=== PATIENT | female | born 1975 | race Caucasian/White ===

== ENCOUNTER 2018-08-11 23:14 | Observation (INO) | payer OTHER ==
[2018-08-11] MEDS ORDERED: ALBUTEROL SO4 2.5/IPRATROPIUM 0.5 INH SOL 3 ML VIAL.NEB. NEB ONE ×2 (23:22→23:31)
--- NOTE | 2018-08-12 00:03 | PDOC ---
History of Present Illness - General History Source: Patient, Family Exam Limitations: No Limitations - History of Present Illness Initial Comments: 08/12/18 01:14 The patient is a 43 year old female brought via EMS and presenting with her family, with a significant past medical history of Addisons disease and asthma ( multiple past intubations), who presents to the ED complaining of shortness of breath, headache and a panic attack onset today. She reports that her and her family are going through a change in living arrangements and are currently staying at a hotel. The patient notes that she has a service dog due to her addisons disease that the hotel initially accepted but then denied after a couple day stay. This interaction, prompted the patient to have a panic attack and come to the ED. The patient was given two neb treatments prior to presentation. The patient denies chest pain, and dizziness. Denies fever, chills, nausea, vomiting, diarrhea or constipation. Denies dysuria, frequency, urgency and hematuria. Allergies: None Past surgical history: None reported Social History: No alcohol, tobacco or drug use reported <Robert Souza - Last Filed: 08/12/18 01:37> <Tiff Thornton - Last Filed: 08/12/18 23:30> - General Chief Complaint: Shortness of Breath Stated Complaint: PANIC ATTACK Time Seen by Provider: 08/12/18 00:01 Past History <Robert Souza - Last Filed: 08/12/18 01:37> - Suicide/Smoking/Psychosocial Hx Smoking History: Never smoked Have you smoked in the past 12 months: No Information on smoking cessation initiated: No Hx Alcohol Use: No Drug/Substance Use Hx: No <Tiff Thornton - Last Filed: 08/12/18 23:30> - Past Medical History Allergies/Adverse Reactions: Allergies Allergy/AdvReac Type Severity Reaction Status Date / Time No Known Allergies Allergy Verified 08/11/18 23:30 Home Medications: Ambulatory Orders NK [No Known Home Medication] 08/12/18 Review of Systems - Review of Systems Able to Perform ROS?: Yes Comments:: 08/12/18 01:14 GENERAL/CONSTITUTIONAL: (+) Shaking. No fever or chills. No weakness. HEAD, EYES, EARS, NOSE AND THROAT: No change in vision. No ear pain or discharge. No sore throat. GASTROINTESTINAL: No nausea, vomiting, diarrhea or constipation. GENITOURINARY: No dysuria, frequency, or change in urination. CARDIOVASCULAR: (+) Shortness of breath. No chest pain. RESPIRATORY: No cough, wheezing, or hemoptysis. MUSCULOSKELETAL: No joint or muscle swelling or pain. No neck or back pain. SKIN: No rash NEUROLOGIC: (+) Headache. No vertigo, loss of consciousness, or change in strength/sensation. ENDOCRINE: No increased thirst. No abnormal weight change. HEMATOLOGIC/LYMPHATIC: No anemia, easy bleeding, or history of blood clots. ALLERGIC/IMMUNOLOGIC: No hives or skin allergy. <Robert Souza - Last Filed: 08/12/18 01:37> *Physical Exam - Vital Signs Last Vital Signs Temp Pulse Resp BP Pulse Ox 96.6 F L 144 H 26 H 154/98 95 08/11/18 23:28 08/11/18 23:28 08/11/18 23:28 08/11/18 23:28 08/11/18 23:28 - Physical Exam Comments: 08/12/18 01:13 Constitutional: Awake, alert, oriented. (+) Anxious, Panicky and tearful. Head: Normocephalic. Atraumatic Eyes: PERRL. EOMI. Conjunctivae are not pale. ENT: Mucous membranes are moist and intact. Posterior pharynx without exudates or erythema. Uvula midline. Neck: Supple. Full ROM. No lymphadenopathy. Cardiovascular: (+) Tachycardia. Regular rhythm. S1, S2 regular. Distal pulses are 2+ and symmetric. Pulmonary/Chest: No evidence of respiratory distress. Clear to auscultation bilaterally No wheezing, rales or rhonchi. Abdominal: Soft and non-distended. There is no tenderness. No rebound, guarding or rigidity. No organomegaly. No palpable masses. Good bowel sounds. Back: No CVA tenderness. Musculoskeletal: No edema. No cyanosis. No clubbing. Full range of motion in all extremities. Nocalf tenderness. Radial/pedal pulses are intact and 2+ bilaterally Skin: Skin is warm and dry. No petechiae. No purpura. Neurological: Alert and oriented to person, place, and time. Cranial nerves II -XII are grossly intact. Normal speech. Strength is grossly symmetric. No sensory deficits. <Robert Souza - Last Filed: 08/12/18 01:37> - Vital Signs Last Vital Signs Temp Pulse Resp BP Pulse Ox 96.6 F L 144 H 26 H 154/98 95 08/11/18 23:28 08/11/18 23:28 08/11/18 23:28 08/11/18 23:28 08/11/18 23:28 <Tiff Thornton - Last Filed: 08/12/18 23:30> Heart Score/ECG Review - ECG Intrepretation Comment:: 08/12/18 01:46 sinus tach at 120, nl axis, nl interval, no acute st/t wave findings <Tiff Thornton - Last Filed: 08/12/18 23:30> ED Treatment Course - LABORATORY CBC & Chemistry Diagram: 08/12/18 00:50 08/12/18 00:50 - ADDITIONAL ORDERS Additional order review: Laboratory Results 08/12/18 00:50 VBG pH 7.37 POC VBG pCO2 40.3 POC VBG pO2 38.4 Mixed VBG HCO3 22.7 08/12/18 00:50 RBC 4.96 MCV 82.8 MCHC 33.1 RDW 14.4 MPV 7.2 L Neutrophils % 80.3 Lymphocytes % 13.2 Monocytes % 5.1 Eosinophils % 0.7 Basophils % 0.7 - Medications Given in the ED: ED Medications Discontinued Medications Generic Name Dose Route Start Last Admin Trade Name Haq PRN Reason Stop Dose Admin Albuterol/Ipratropium 1 amp 08/11/18 23:31 08/11/18 23:31 Duoneb - NEB 08/11/18 23:32 1 amp NOW ONE Administration Albuterol/Ipratropium 1 amp 08/12/18 00:32 08/12/18 01:05 Duoneb - NEB 08/12/18 00:33 1 amp ONCE ONE Administration Sodium Chloride 1,000 ml 08/12/18 00:32 08/12/18 01:05 Normal Saline - IV 08/12/18 00:33 1,000 ml ONCE ONE Administration <Robert Souza - Last Filed: 08/12/18 01:37> - LABORATORY CBC & Chemistry Diagram: 08/12/18 08:35 08/12/18 08:35 - Medications Given in the ED: ED Medications Discontinued Medications Generic Name Dose Route Start Last Admin Trade Name Melchor PRN Reason Stop Dose Admin Albuterol/Ipratropium 1 amp 08/11/18 23:31 08/11/18 23:31 Duoneb - NEB 08/11/18 23:32 1 amp NOW ONE Administration <Tiff Thornton - Last Filed: 08/12/18 23:30> Medical Decision Making - Medical Decision Making 08/12/18 01:41 a/p: 43yo female with hx of asthma and hx of gertrude's disease presents for eval of sob/anxiety/addisonian crisis -pt very anxious upon arrival after alledged verbal altercation with the hotel worker -pt tachy, tearful, tachpnic -pt states she has been off her meds x 9 months -no recent flare ups -last asthma was 2017 -pt follows with her PMD at [facility] -does not follow with an compensator -will send labs, ekg, cxr, head ct -will give nebs -will monitor and reassess 08/12/18 01:46 re-eval: pt feeling much hr improved to 120 from 144 lungs cta no longer with panicking or anxiety -with rosenthal -will medicate, head ct pending will continue to monitor and reassess 08/12/18 23:29 pt was signed out to the oncoming ED physician pending labs and head ct <Tiff Thornton - Last Filed: 08/12/18 23:30> *DC/Admit/Observation/Transfer - Attestations Scribe Attestion: 08/12/18 01:13 Documentation prepared by Robert Souza, acting as medical sales associate for Tiff Thornton DO <Robert Souza - Last Filed: 08/12/18 01:37> - Discharge Dispostion Decision to Admit order: No - Attestations Physician Attestion: 08/12/18 01:48 I, Dr. Tiff Thornton, DO, attest that this document has been prepared under my direction and personally reviewed by me in its entirety. I further attest, that it accurately reflects all work, treatment, procedures and medical decision -making performed by me. <Tiff Thornton - Last Filed: 08/12/18 23:30> Diagnosis at time of Disposition: Acute stress reaction, Asthma attack, Weakness - Discharge Dispostion Disposition: HOME Condition at time of disposition: Improved
[2018-08-12] MEDS ORDERED: SODIUM CHLORIDE 0.9% 1000 ML INFUS.BAG IV ONE (00:32)
[2018-08-12] MEDS ORDERED: ALBUTEROL SO4 2.5/IPRATROPIUM 0.5 INH SOL 3 ML VIAL.NEB. NEB ONE ×2 (00:32→01:01)
[2018-08-12 01:06] LABS: VENOUS PC02 40.3 mmHg (38-52); VENOUS PH 7.37 (7.32-7.42); VENOUS PO2 38.4 mmHg (28-48)
[2018-08-12 01:07] LABS: BASO % 0.7 % (0-2.0); EOS % 0.7 % (0-4.5); HEMOGLOBIN 13.6 GM/dL (10.7-15.3); LYMPH % 13.2 % (8-40); MCH 27.4 pg (25.7-33.7); MCHC 33.1 g/dl (32.0-36.0); MEAN CELL VOLUME 82.8 fl (80-96); MEAN PLT VOLUME 7.2 fl (7.5-11.1); MONO % 5.1 % (3.8-10.2); NEUT % 80.3 % (42.8-82.8); PLATELET COUNT 322 K/MM3 (134-434); RBC 4.96 M/mm3 (3.60-5.2); RDW 14.4 % (11.6-15.6); WHITE BLOOD COUNT 12.6 K/mm3 (4.0-10.0)
[2018-08-12 01:20] LABS: INR 1.04 (0.83-1.09); PROTHROMBIN TIME (PATIENT) 12.3 SEC (9.7-13.0)
[2018-08-12 01:23] LABS: ACTIVATED PTT 24.5 SECONDS (25.2-36.5)
[2018-08-12 01:34] LABS: ALBUMIN 3.9 g/dl (3.4-5.0); ALK PHOS 96 U/L (45-117); ANION GAP 9 MMOL/L (8-16); BILIRUBIN,TOTAL 0.5 mg/dL (0.2-1); BLOOD UREA NITROGEN 13 mg/dL (7-18); CALCIUM 8.9 mg/dL (8.5-10.1); CHLORIDE 107 mmol/L (98-107); CO2 23 mmol/L (21-32); GLUCOSE,RANDOM 157 mg/dL (74-106); MAGNESIUM 1.9 mg/dL (1.8-2.4); POTASSIUM 3.5 mmol/L (3.5-5.1); SGOT/AST 20 U/L (15-37); SGPT/ALT 33 U/L (13-61); SODIUM 139 mmol/L (136-145); TOT PROT 7.3 g/dl (6.4-8.2)
[2018-08-12] MEDS ORDERED: METOCLOPRAMIDE HCL INJECTION 10 MG/2 ML VIAL IVPUSH ONE (01:40)
[2018-08-12] MEDS ORDERED: ACETAMINOPHEN 1000 MG/100 ML VIAL (NON FORMULARY) IVPB ONE (01:40)
[2018-08-12] MEDS ORDERED: ACETAMINOPHEN INJECTION 100 ML IVPB ONE (01:43)
[2018-08-12] MEDS ORDERED: METOCLOPRAMIDE HCL INJECTION 10 MG/2 ML VIAL ONE (01:43)
[2018-08-12] MEDS ORDERED: methylPREDNISolone NA SUCC 125 MG/2 ML VIAL IVPB ONE (01:48)
[2018-08-12] MEDS ORDERED: methylPREDNISolone NA SUCC 125 MG/2 ML VIAL ONE (01:50)
--- NOTE | 2018-08-12 04:19 | PDOC ---
*Physical Exam - Vital Signs Last Vital Signs Temp Pulse Resp BP Pulse Ox 96.6 F L 144 H 26 H 154/98 95 08/11/18 23:28 08/11/18 23:28 08/11/18 23:28 08/11/18 23:28 08/11/18 23:28 - Physical Exam Comments: 08/12/18 04:16 Care received at 2 AM Briefly, 43-year-old patient with a history of Pembina's disease and asthma BIBEMS to the emergency Department with acute onset shortness of breath and panic attack after a verbal altercation. Per EMS, wheezing en route. Patient received multiple duonebs, steroids. Labs were checked and within normal limits. UPT neg. Patient complaining of a headache and was pending CT head. CTH negative for acute path ON re-evaluation, pt continues to feel SOB, and diffusely weak stating she feels like an gertrude's crisis is coming on Pt has been off meds for months Attempted to walk pt, could not stand, stated her legs are giving out At this pt, will admit for SOB, weakness Hospitalist has been microblogged 08/12/18 05:[address] Jacobson, pt accepted for admission to med/surg obs Case discussed in detail with admitting physician including history, physical exam and ancillary studies. Admitting physician has assumed care for the patient, will follow all pending diagnostics and will complete the evaluation and treatment. ED Treatment Course - LABORATORY CBC & Chemistry Diagram: 08/12/18 00:50 08/12/18 00:50 - ADDITIONAL ORDERS Additional order review: Laboratory Results 08/12/18 08/12/18 08/12/18 00:50 00:50 00:50 PT with INR INR PTT (Actin FS) VBG pH 7.37 POC VBG pCO2 40.3 POC VBG pO2 38.4 Mixed VBG HCO3 22.7 Sodium 139 Potassium 3.5 Chloride 107 Carbon Dioxide 23 Anion Gap 9 BUN 13 Creatinine 1.0 Creat Clearance w eGFR > 60 Random Glucose 157 H Calcium 8.9 Magnesium 1.9 Total Bilirubin 0.5 AST 20 ALT 33 Alkaline Phosphatase 96 Creatine Kinase 113 Troponin I < 0.02 Total Protein 7.3 Albumin 3.9 Serum , Qual Negative 08/12/18 00:50 PT with INR 12.30 INR 1.04 PTT (Actin FS) 24.5 L VBG pH POC VBG pCO2 POC VBG pO2 Mixed VBG HCO3 Sodium Potassium Chloride Carbon Dioxide Anion Gap BUN Creatinine Creat Clearance w eGFR Random Glucose Calcium Magnesium Total Bilirubin AST ALT Alkaline Phosphatase Creatine Kinase Troponin I Total Protein Albumin Serum , Qual 08/12/18 00:50 RBC 4.96 MCV 82.8 MCHC 33.1 RDW 14.4 MPV 7.2 L Neutrophils % 80.3 Lymphocytes % 13.2 Monocytes % 5.1 Eosinophils % 0.7 Basophils % 0.7 - Medications Given in the ED: ED Medications Discontinued Medications Generic Name Dose Route Start Last Admin Trade Name Freq PRN Reason Stop Dose Admin Acetaminophen 1,000 mg 08/12/18 01:40 08/12/18 03:25 Ofirmev Injection - IVPB 08/12/18 01:41 1,000 mg ONCE ONE Administration Albuterol/Ipratropium 1 amp 08/11/18 23:31 08/11/18 23:31 Duoneb - NEB 08/11/18 23:32 1 amp NOW ONE Administration Albuterol/Ipratropium 1 amp 08/12/18 00:32 08/12/18 01:05 Duoneb - NEB 08/12/18 00:33 1 amp ONCE ONE Administration Diphenhydramine HCl 12.5 mg 08/12/18 01:40 08/12/18 02:49 Benadryl Injection - IVPUSH 08/12/18 01:41 12.5 mg ONCE ONE Administration Methylprednisolone Sodium Succinate 125 mg 08/12/18 01:48 08/12/18 02:50 Solu-Medrol - IVPB 08/12/18 01:49 125 mg ONCE ONE Administration Metoclopramide HCl 10 mg 08/12/18 01:40 08/12/18 02:50 Reglan Injection - IVPUSH 08/12/18 01:41 10 mg ONCE ONE Administration Sodium Chloride 1,000 ml 08/12/18 00:32 08/12/18 01:05 Normal Saline - IV 08/12/18 00:33 1,000 ml ONCE ONE Administration *DC/Admit/Observation/Transfer Diagnosis at time of Disposition: Acute stress reaction, Asthma attack, Weakness - Discharge Dispostion Condition at time of disposition: Guarded Decision to Admit order: Yes - Referrals Referrals: Milana Dodd [Primary Care Provider] - - Patient Instructions - Post Discharge Activity - Attestations Physician Attestion: 08/12/18 05:14 I, Dr. María Golden MD, attest that this document has been prepared under my direction and personally reviewed by me in its entirety. I further attest, that it accurately reflects all work, treatment, procedures and medical decision -making performed by me.
--- NOTE | 2018-08-12 06:34 | HP ---
CHIEF COMPLAINT: SOB, chest pain PCP: Dr Milana Dodd HISTORY OF PRESENT ILLNESS: Pt is a 43 y/o lady with a significant past medical history of severe asthma ( intubated 9 times), Deschutes's disease, panic attacks, SARAH, migraines, brain aneurysm(vein), Factor V of Leiden mutation (not on anticoagulation, has vena cava filter), PUD, and nephrolithiasis presented to [facility] yesterday evening () c/o shortness of breath and chest pain. Pt states she is under recent stress due to her having to move out of her apartment in [place], [place] due to a mold infestation. Pt was in the lobby of her hotel yesterday evening around 9 PM when she entered into a verbal argument with the staff at the hotel regarding her dog. Pt became flustered and began to experience palpatations, numbness, shaking, palpitations, and weakness in her legs. EMS was called and pt was brought to [facility]. 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 States she is not following an [employer]. ER course was notable for: (1) CT Head negative (2) Troponin <0.02 (3)EKG --> Sinus tach at 120, nl axis, nl interval, no acute st/t wave findings Recent Travel: Denies PAST MEDICAL HISTORY: PAST SURGICAL HISTORY: Vena Cava Filter, ERCP, Cholecystectomy, 2 C-Sections, unspecified back surgery. Social History: Smoking: Denies Alcohol: Denies Drugs: Denies Family History: Allergies No Known Allergies Allergy (Verified 08/11/18 23:30) HOME MEDICATIONS: REVIEW OF SYSTEMS CONSTITUTIONAL: Absent: fever, chills, diaphoresis, generalized weakness, malaise, loss of appetite, weight change HEENT: Absent: rhinorrhea, nasal congestion, throat pain, throat swelling, difficulty swallowing, mouth swelling, ear pain, eye pain, visual changes CARDIOVASCULAR: PRESENT: chest pain, palpitations, irregular heart rate, lightheadedness, peripheral edema RESPIRATORY: PRESENT: shortness of breath, wheezing GASTROINTESTINAL: Absent: abdominal pain, abdominal distension, nausea, vomiting, diarrhea, constipation, melena, hematochezia GENITOURINARY: Absent: dysuria, frequency, urgency, hesitancy, hematuria, flank pain, genital pain MUSCULOSKELETAL: Absent: myalgia, arthralgia, joint swelling, back pain, neck pain SKIN: Absent: rash, itching, pallor HEMATOLOGIC/IMMUNOLOGIC: Absent: easy bleeding, easy bruising, lymphadenopathy, frequent infections ENDOCRINE: PRESENT: RAYMUNDO'S DISEASE NEUROLOGIC: Absent: headache, focal weakness or paresthesias, dizziness, unsteady gait, seizure, mental status changes, bladder or bowel incontinence PSYCHIATRIC: PRESENT: anxiety, depression PHYSICAL EXAMINATION Vital Signs - 24 hr 08/11/18 23:28 Temperature 96.6 F L Pulse Rate 144 H Respiratory 26 H Rate Blood Pressure 154/98 O2 Sat by Pulse 95 Oximetry (%) GENERAL: AAOx3, Anxious HEAD: NC/AT. EYES: PERRLA EARS, NOSE, THROAT: MMM NECK: Supple No JVD LUNGS: CTA B/L HEART: Tachycardia, Regular rythm ABDOMEN: Morbidly obese, abdominal striae MUSCULOSKELETAL: Full ROM throughout UPPER EXTREMITIES: No CCE LOWER EXTREMITIES: No CCE NEUROLOGICAL: No neuro deficits appreciated PSYCHIATRIC: Anxious, emotionally labile SKIN:No Rashes or lesions appreciated Laboratory Results - last 24 hr 08/12/18 08/12/18 08/12/18 00:50 00:50 00:50 WBC RBC Hgb Hct MCV MCH MCHC RDW Plt Count MPV Absolute Neuts (auto) Neutrophils % Lymphocytes % Monocytes % Eosinophils % Basophils % Nucleated RBC % PT with INR 12.30 INR 1.04 PTT (Actin FS) 24.5 L VBG pH 7.37 POC VBG pCO2 40.3 POC VBG pO2 38.4 Mixed VBG HCO3 22.7 Sodium Potassium Chloride Carbon Dioxide Anion Gap BUN Creatinine Creat Clearance w eGFR Random Glucose Calcium Magnesium Total Bilirubin AST ALT Alkaline Phosphatase Creatine Kinase Troponin I Total Protein Albumin Serum , Qual Negative 08/12/18 08/12/18 00:50 00:50 WBC 12.6 H RBC 4.96 Hgb 13.6 Hct 41.0 MCV 82.8 MCH 27.4 MCHC 33.1 RDW 14.4 Plt Count 322 MPV 7.2 L Absolute Neuts (auto) 10.1 H Neutrophils % 80.3 Lymphocytes % 13.2 Monocytes % 5.1 Eosinophils % 0.7 Basophils % 0.7 Nucleated RBC % 0 PT with INR INR PTT (Actin FS) VBG pH POC VBG pCO2 POC VBG pO2 Mixed VBG HCO3 Sodium 139 Potassium 3.5 Chloride 107 Carbon Dioxide 23 Anion Gap 9 BUN 13 Creatinine 1.0 Creat Clearance w eGFR > 60 Random Glucose 157 H Calcium 8.9 Magnesium 1.9 Total Bilirubin 0.5 AST 20 ALT 33 Alkaline Phosphatase 96 Creatine Kinase 113 Troponin I < 0.02 Total Protein 7.3 Albumin 3.9 Serum , Qual ASSESSMENT/PLAN: Pt is a 43 y/o lady with a significant past medical history of severe asthma ( intubated 9 times), Deschutes's disease, panic attacks, SARAH, migraines, brain aneurysm(vein), Factor V of Leiden mutation (not on anticoagulation, has vena cava filter), PUD, and nephrolithiasis presented to [facility] yesterday evening () c/o shortness of breath and chest pain. # SOB, Chest Pain -Troponin <0.02, repeat Troponin pending -EKG --> Sinus tach at 120, nl axis, nl interval, no acute st/t wave findings Chest XRAY--> No acute pathology # Raymundo's disease -Serum AM Cortisol pending -Endo Consult -Consider resuming Steroid medication as pt abruptly stopped taking them in October of last year # Asthma -Duoneb PRN Q6H -Consider Pulmonology consult in light of intubation history FEN No Fluids Monitor Electrolytes Regular Diet DVT ppx: Heparin SQ TID Dispo: Monitor on floors Visit type - Emergency Visit Emergency Visit: Yes ED Registration Date: 08/12/18 Care time: The patient presented to the Emergency Department on the above date and was hospitalized for further evaluation of their emergent condition. - New Patient This patient is new to me today: Yes Date on this admission: 08/12/18 - Critical Care Critical Care patient: No
--- NOTE | 2018-08-12 08:17 | PN ---
Teaching Attending Note Name of Resident: Rahat Lewis ATTENDING PHYSICIAN STATEMENT I saw and evaluated the patient. I reviewed the resident's note and discussed the case with the resident. I agree with the resident's findings and plan as documented. Patient on evaluation with tachycardia, no risk factors for PE, h/o Addisons disease not on medications due to her complications of abdominal ulcers and weight gain. Patient states her doctor is aware of her not taking medications and follow her levels closely. she reports that since stopping her medications she has not been hospitalized frequently. Patient with possible adrenal crisis- methylprednisone given and get cortisol level in AM. telemetry monitoring. Endocrine consult.
[2018-08-12 08:50] LABS: BASO % 0.3 % (0-2.0); HEMOGLOBIN 13.6 GM/dL (10.7-15.3); LYMPH % 5.4 % (8-40); MCH 27.4 pg (25.7-33.7); MCHC 33.1 g/dl (32.0-36.0); MEAN CELL VOLUME 82.8 fl (80-96); MEAN PLT VOLUME 7.4 fl (7.5-11.1); MONO % 0.6 % (3.8-10.2); NEUT % 93.7 % (42.8-82.8); PLATELET COUNT 331 K/MM3 (134-434); RBC 4.95 M/mm3 (3.60-5.2); RDW 14.1 % (11.6-15.6); WHITE BLOOD COUNT 10.8 K/mm3 (4.0-10.0)
[2018-08-12 09:14] LABS: INR 0.99 (0.83-1.09); PROTHROMBIN TIME (PATIENT) 11.7 SEC (9.7-13.0)
[2018-08-12 09:16] LABS: ANION GAP 6 MMOL/L (8-16); BLOOD UREA NITROGEN 13 mg/dL (7-18); CALCIUM 8.7 mg/dL (8.5-10.1); CHLORIDE 109 mmol/L (98-107); CO2 24 mmol/L (21-32); CREATININE 0.9 mg/dL (0.55-1.3); GLUCOSE,RANDOM 187 mg/dL (74-106); PHOSPHOROUS 2.2 mg/dL (2.5-4.9); POTASSIUM 4.3 mmol/L (3.5-5.1); SODIUM 139 mmol/L (136-145)
[2018-08-12 09:17] LABS: ACTIVATED PTT 27.2 SECONDS (25.2-36.5)
[2018-08-12 09:49] VITALS: BP 127/75; PULSE 109; TEMP 98.3
[2018-08-12 10:00] LABS: ACANTHOCYTES 0; ANISOCYTOSIS 0; HELMET CELLS 0; HOWELL-JOLLY BODIES 0; MACROCYTOSIS 0; OVALOCYTE 0; PLATELET ESTIMATE NORMAL; ROULEAU 0; SICKELED CELLS 0; TARGET CELLS 0; TEAR DROP CELLS 0; TOXIC GRANULATION 0
[2018-08-12 10:09] VITALS: BMI 41.3
[2018-08-12] MEDS ORDERED: HEPARIN NA (PORCINE) 5,000 UNITS/ML 1ML VIAL SQ SCH (14:00)
--- NOTE | 2018-08-12 15:09 | DS ---
Physical Exam: SUBJECTIVE: Patient seen and examined OBJECTIVE: Vital Signs Period Temp Pulse Resp BP Sys/Junior Pulse Ox Last 24 Hr 96.6 F-98.7 F 103-144 20-26 117-154/72-98 95-99 PHYSICAL EXAM GENERAL: The patient is awake, alert, and fully oriented, in no acute distress. HEAD: Normal with no signs of trauma. EYES: PERRL, extraocular movements intact, sclera anicteric, conjunctiva clear. ENT: Ears normal, nares patent, oropharynx clear without exudates, moist mucous membranes. NECK: Trachea midline, full range of motion, supple. LUNGS: Breath sounds equal, clear to auscultation bilaterally, no wheezes, no crackles, no accessory muscle use. HEART: Regular rate and rhythm, S1, S2 without murmur, rub or gallop. ABDOMEN: Soft, nontender, nondistended, normoactive bowel sounds, no guarding, no rebound, no hepatosplenomegaly, no masses. EXTREMITIES: 2+ pulses, warm, well-perfused, no edema. NEUROLOGICAL: Cranial nerves II through XII grossly intact. Normal speech, gait not observed. PSYCH: Normal mood, normal affect. SKIN: Warm, dry, normal turgor, no rashes or lesions noted. LABS Laboratory Results - last 24 hr 08/12/18 08/12/18 08/12/18 00:50 00:50 00:50 WBC RBC Hgb Hct MCV MCH MCHC RDW Plt Count MPV Absolute Neuts (auto) Neutrophils % Neutrophils % (Manual) Band Neutrophils % Lymphocytes % Lymphocytes % (Manual) Monocytes % Monocytes % (Manual) Eosinophils % Eosinophils % (Manual) Basophils % Basophils % (Manual) Myelocytes % (Man) Promyelocytes % (Man) Blast Cells % (Manual) Nucleated RBC % Metamyelocytes Hypochromia Toxic Granulation Dohle Bodies Platelet Estimate Polychromasia Poikilocytosis Basophilic Stippling Anisocytosis Microcytosis Macrocytosis Spherocytes Sickle Cells Target Cells Tear Drop Cells Ovalocytes Stomatocytes Helmet Cells Avelar-Stedman Bodies [place] Rings Mau Cells Acanthocytes (Spur) Rouleaux Fragmented RBCs Schistocytes PT with INR 12.30 INR 1.04 PTT (Actin FS) 24.5 L VBG pH 7.37 POC VBG pCO2 40.3 POC VBG pO2 38.4 Mixed VBG HCO3 22.7 Sodium Potassium Chloride Carbon Dioxide Anion Gap BUN Creatinine Creat Clearance w eGFR Random Glucose Calcium Phosphorus Magnesium Total Bilirubin AST ALT Alkaline Phosphatase Creatine Kinase Troponin I Total Protein Albumin Serum , Qual Negative 08/12/18 08/12/18 08/12/18 00:50 00:50 08:35 WBC 12.6 H 10.8 H RBC 4.96 4.95 Hgb 13.6 13.6 Hct 41.0 41.0 MCV 82.8 82.8 MCH 27.4 27.4 MCHC 33.1 33.1 RDW 14.4 14.1 Plt Count 322 331 MPV 7.2 L 7.4 L Absolute Neuts (auto) 10.1 H 10.1 H Neutrophils % 80.3 93.7 H Neutrophils % (Manual) 89.9 H Band Neutrophils % 0.0 Lymphocytes % 13.2 5.4 L D Lymphocytes % (Manual) 8.1 Monocytes % 5.1 0.6 L D Monocytes % (Manual) 2 L Eosinophils % 0.7 0.0 D Eosinophils % (Manual) 0.0 Basophils % 0.7 0.3 Basophils % (Manual) 0.0 Myelocytes % (Man) 0 Promyelocytes % (Man) 0 Blast Cells % (Manual) 0 Nucleated RBC % 0 0 Metamyelocytes 0 Hypochromia 0 Toxic Granulation 0 Dohle Bodies 0 Platelet Estimate Normal Polychromasia 0 Poikilocytosis 0 Basophilic Stippling 0 Anisocytosis 0 Microcytosis 0 Macrocytosis 0 Spherocytes 0 Sickle Cells 0 Target Cells 0 Tear Drop Cells 0 Ovalocytes 0 Stomatocytes 0 Helmet Cells 0 Avelar-Stedman Bodies 0 [place] Rings 0 Mau Cells 0 Acanthocytes (Spur) 0 Rouleaux 0 Fragmented RBCs 0 Schistocytes 0 PT with INR INR PTT (Actin FS) VBG pH POC VBG pCO2 POC VBG pO2 Mixed VBG HCO3 Sodium 139 Potassium 3.5 Chloride 107 Carbon Dioxide 23 Anion Gap 9 BUN 13 Creatinine 1.0 Creat Clearance w eGFR > 60 Random Glucose 157 H Calcium 8.9 Phosphorus Magnesium 1.9 Total Bilirubin 0.5 AST 20 ALT 33 Alkaline Phosphatase 96 Creatine Kinase 113 Troponin I < 0.02 Total Protein 7.3 Albumin 3.9 Serum , Qual 08/12/18 08/12/18 08:35 08:35 WBC RBC Hgb Hct MCV MCH MCHC RDW Plt Count MPV Absolute Neuts (auto) Neutrophils % Neutrophils % (Manual) Band Neutrophils % Lymphocytes % Lymphocytes % (Manual) Monocytes % Monocytes % (Manual) Eosinophils % Eosinophils % (Manual) Basophils % Basophils % (Manual) Myelocytes % (Man) Promyelocytes % (Man) Blast Cells % (Manual) Nucleated RBC % Metamyelocytes Hypochromia Toxic Granulation Dohle Bodies Platelet Estimate Polychromasia Poikilocytosis Basophilic Stippling Anisocytosis Microcytosis Macrocytosis Spherocytes Sickle Cells Target Cells Tear Drop Cells Ovalocytes Stomatocytes Helmet Cells Avelar-Stedman Bodies [place] Rings [place] Cells Acanthocytes (Spur) Rouleaux Fragmented RBCs Schistocytes PT with INR 11.70 INR 0.99 PTT (Actin FS) 27.2 VBG pH POC VBG pCO2 POC VBG pO2 Mixed VBG HCO3 Sodium 139 Potassium 4.3 Chloride 109 H Carbon Dioxide 24 Anion Gap 6 L BUN 13 Creatinine 0.9 Creat Clearance w eGFR > 60 Random Glucose 187 H Calcium 8.7 Phosphorus 2.2 L Magnesium 2.0 Total Bilirubin AST ALT Alkaline Phosphatase Creatine Kinase Troponin I < 0.02 Total Protein Albumin Serum , Qual HOSPITAL COURSE: Date of Admission:08/12/18 Date of Discharge: 08/12/18 Discharge Summary Reason For Visit: ASTHMA WEAKNESS Current Active Problems Asthma attack (Acute) Panic attack as reaction to stress (Acute) [place] disease (Chronic) Condition: Improved - Instructions Diet, Activity, Other Instructions: You were placed in observation at [facility] on 08/12 after coming to the ER with shortness of breath, headache, and a panic attack. In the ER, you were treated with SoluMedrol, Reglan, Benadryl, and DuoNeb. With this treatment you felt better. You are being discharged on 08/12. You may resume your usual asthma medications, diet, and activity. You should schedule an appointment with your primary care physician, Dr. Milana Dodd, within 1 week. Please return to the ER if you develop shortness of breath, chest pain, palpitations. Referrals: Milana Dodd [Primary Care Provider] - 1 Week Disposition: HOME - Home Medications Comprehensive Discharge Medication List: Ambulatory Orders NK [No Known Home Medication] 08/12/18
--- NOTE | 2018-08-12 21:55 | EKG ---
Test Reason : Blood Pressure : / mmHG Vent. Rate : 120 BPM Atrial Rate : 120 BPM P-R Int : 156 ms QRS Dur : 088 ms QT Int : 312 ms P-R-T Axes : 043 084 037 degrees QTc Int : 440 ms SINUS TACHYCARDIA LOW VOLTAGE QRS BORDERLINE ECG WHEN COMPARED WITH ECG OF 12-AUG-2018 01:28, PREVIOUS ECG HAS UNDETERMINED RHYTHM, NEEDS REVIEW Confirmed by FERNANDA GOODMAN MD ([id number]) on 08/12/2018 9:55:27 PM Referred By: Confirmed By:FERNANDA GOODMAN MD
== END 2018-08-12 15:43 | disposition home or self-care (01) ==
LOC: JER 23:14 → JERBED 08-12 05:15 → J6S 08-12 09:27
PROVIDERS: ADMIT Internal Medicine; ATTEND Internal Medicine
PROC: 3E0333Z Introduction of Anti-inflammatory into Peripheral Vein, Percutaneous Approach (ICD-10-PCS; principal; 2018-08-12)
PROC: 3E033GC Introduction of Other Therapeutic Substance into Peripheral Vein, Percutaneous Approach (ICD-10-PCS; 2018-08-12)
PROC: 3E0337Z Introduction of Electrolytic and Water Balance Substance into Peripheral Vein, Percutaneous Approach (ICD-10-PCS; 2018-08-12)
PROC: 3E013GC Introduction of Other Therapeutic Substance into Subcutaneous Tissue, Percutaneous Approach (ICD-10-PCS; 2018-08-12)
PROC: 3E0F7GC Introduction of Other Therapeutic Substance into Respiratory Tract, Via Natural or Artificial Opening (ICD-10-PCS; 2018-08-12)
DX: F43.0 Acute stress reaction (principal); J45.901 Unspecified asthma with (acute) exacerbation; F41.0 Panic disorder [episodic paroxysmal anxiety]; R53.1 Weakness; E27.1 Primary adrenocortical insufficiency
CPT/HCPCS: 36415; 70450-TC; 71045-TC-FY; 80048; 80053; 82533; 82550; 82803; 83735; 84100; 84484; 84703; 85025; 85610; 85730; 93005; 93010; 94640; 96372; 96374; 96375; 99285-25; G0378; J0131; J1644; J7030; J7620